=== PATIENT | male | born 1935 | race Caucasian/White ===

== ENCOUNTER 2019-01-27 19:26 | Inpatient (IN) | payer MEDICARE, BC ==
[~2019-01-27] VITALS: Ht 177.8 cm; Wt 89.1 kg
[~2019-01-27 19:26] MED LIST: DIPH-423 PO; DULO-31 PO
[2019-01-27 20:02] LABS: RED BLOOD COUNT 3.96 X10'6 (4.70-6.10)
[2019-01-27 20:04] LABS: BASOPHILS # (AUTO) 0.1 X10'3 (0-0.2); BASOPHILS % (AUTO) 0.9 % (0-1); EOSINOPHILS # (AUTO) 0.5 X10'3 (0-0.9); EOSINOPHILS % (AUTO) 7.3 % (0-6); HEMATOCRIT 39.2 % (42.0-52.0); HEMOGLOBIN 13.6 g/dl (14.0-17.9); LYMPHOCYTES # (AUTO) 2.3 X10'3 (1.1-4.8); LYMPHOCYTES % (AUTO) 32.6 % (21-51); MEAN CORPUSCULAR HEMOGLOBIN 34.3 PG (27.0-31.0); MEAN CORPUSCULAR HGB CONC 34.6 g/dL (33.0-36.5); MEAN PLATELET VOLUME 8.2 FL (7.4-10.4); MONOCYTES # (AUTO) 0.6 X10'3 (0-0.9); MONOCYTES % (AUTO) 7.9 % (2-12); NEUTROPHILS # (AUTO) 3.6 X10'3 (1.8-7.7); NEUTROPHILS % (AUTO) 51.3 % (42-75); PLATELET COUNT 302 X10'3 (140-440); RED CELL DISTRIBUTION WIDTH 14.6 % (11.5-14.5)
[2019-01-27 20:12] LABS: ALANINE AMINOTRANSFERASE 22 U/L (12-78); ALBUMIN 3.3 G/DL (3.4-5.0); ALKALINE PHOSPHATASE 69 IU/L (46-116); ANION GAP 7 (8-16); ASPARTATE AMINO TRANSFERASE 19 U/L (10-37); BILIRUBIN,TOTAL 0.3 MG/DL (0.1-1.0); BLOOD UREA NITROGEN 22 MG/DL (7-18); BUN/CREATININE RATIO 18.5 (5.4-32.0); CALCIUM 9.4 MG/DL (8.5-10.1); CHLORIDE 106 MMOL/L (99-107); CREATININE 1.19 MG/DL (0.60-1.10); GLUCOSE 149 MG/DL (70-104); POTASSIUM 3.7 MMOL/L (3.5-5.1); SODIUM 141 MMOL/L (135-145); TOTAL CARBON DIOXIDE 27.8 MMOL/L (24-32); TOTAL PROTEIN 6.6 G/DL (6.4-8.2); eGFR 59 ML/MIN
[2019-01-27 20:15] LABS: TROPONIN I 0.16 NG/ML (0.0-0.05)
[2019-01-27] MEDS ORDERED: FLO0.4C PO (20:54)
[2019-01-27] MEDS ORDERED: DIVA-74 PO (20:54)
[2019-01-27] MEDS ORDERED: INDA2.5T5 PO (20:54)
[2019-01-27] MEDS ORDERED: ASPI-1265 PO (20:54)
[2019-01-27] MEDS ORDERED: OMEP-50 PO (20:54)
[2019-01-27] MEDS ORDERED: OXAP600T PO (20:54)
[2019-01-27] MEDS ORDERED: OLME1TAB44 PO (20:54)
[2019-01-27] MEDS ORDERED: BUPR300T86 PO (20:54)
[2019-01-27] MEDS ORDERED: METF-98 PO (20:54)
[2019-01-27] MEDS ORDERED: AMLO10TA PO (20:54)
[2019-01-27] MEDS ORDERED: ATOR-2 PO (20:54)
[2019-01-27] MEDS ORDERED: TRAZ-219 PO (20:54)
[2019-01-27] MEDS ORDERED: magnesium Cl slow-release 64mg tablet PO PRN (21:45)
[2019-01-27] MEDS ORDERED: magnesium hydroxide 30ml (MOM) UD suspension PO PRN (21:45)
[2019-01-27] MEDS ORDERED: magnesium 2GM in 50ml NS 50 ML IV PRN (21:45)
[2019-01-27] MEDS ORDERED: potassium Cl 20 mEq SR tablet PO PRN ×2 (21:45)
[2019-01-27] MEDS ORDERED: potassium CL 10mEq/100ml bag 100 ML IV PRN ×2 (21:45)
[2019-01-27] MEDS ORDERED: acetaminophen 325mg tablet PO PRN ×2 (21:45)
[2019-01-27] MEDS ORDERED: aspirin 81mg tab.chew PO ONE (21:45)
[2019-01-27] MEDS ORDERED: magnesium 4gm in 100ml NS 100 ML IV PRN (21:45)
[2019-01-27] MEDS ORDERED: ondansetron/PF 4mg/2ml inj IV PRN (21:45)
[2019-01-27] MEDS ORDERED: mag hydrox/Alum hydrox/simeth 30ml oral suspension PO PRN (21:45)
--- NOTE | 2019-01-27 22:30 | NUR ---
Patient in room MED 311. I have received report from Porfirio VARGAS ED and had the opportunity to ask questions and assume patient care.
[2019-01-27 23:08] VITALS: BP 164/84
[2019-01-27] MEDS ORDERED: DIPH-423 PO (23:23)
--- NOTE | 2019-01-28 00:56 | NUR ---
PAGER ID: [phone] MESSAGE: 311 pt Demetrius extreme tyler to 34 with second degree block. First trop positive. Asymptomatic at this time. Saline locked. Med rec ready for to review. Thank you. - Lala [id number]
[2019-01-28] MEDS ORDERED: diphenhydrAMINE 25mg capsule PO PRN (01:30)
[2019-01-28] MEDS ORDERED: enoxaparin 80mg/0.8ml syringe SUBCUT ONE (01:35)
[2019-01-28] MEDS ORDERED: metoprolol tartrate 1mg/ml inj IV PRN (01:45)
[2019-01-28] MEDS ORDERED: nitroGLYCERIN 0.4mg SUBLingual tab SL PRN (01:45)
[2019-01-28] MEDS ORDERED: regadenoson 0.4mg/5ml syringe IV PRN (01:45)
[2019-01-28] MEDS ORDERED: aminophylline 250mg/10ml inj. IV PRN (01:45)
[2019-01-28 02:00] VITALS: BP 106/45
[2019-01-28 02:46] LABS: ALBUMIN 3.1 G/DL (3.4-5.0); ANION GAP 12 (8-16); BLOOD UREA NITROGEN 18 MG/DL (7-18); BUN/CREATININE RATIO 18.2 (5.4-32.0); CALCIUM 9.5 MG/DL (8.5-10.1); CHLORIDE 107 MMOL/L (99-107); CHOL/HDL RATIO 3.9 (0.00-4.99); CHOLESTEROL 139 MG/DL (0-200); CREATININE 0.99 MG/DL (0.60-1.10); GLUCOSE 133 MG/DL (70-104); HDL CHOLESTEROL 36 MG/DL (35-60); LDL CHOLESTEROL 85 MG/DL (50-100); POTASSIUM 3.6 MMOL/L (3.5-5.1); SODIUM 145 MMOL/L (135-145); TOTAL CARBON DIOXIDE 25.9 MMOL/L (24-32); TRIGLYCERIDES 102 MG/DL (20-135); TROPONIN I 0.14 NG/ML (0.0-0.05); eGFR 72 ML/MIN
--- NOTE | 2019-01-28 03:11 | NUR ---
PAGER ID: [phone] MESSAGE: 311 Demetrius RODRIGUEZ critical magnesium of 1.0. K is 3.6. Will replace per protocol. Thank you. - Lala
--- NOTE | 2019-01-28 03:33 | NUR ---
CRITICAL MAGNESIUM Patient has critical magnesium of 1.0, k 3.6, replacing mg IV, patient is asymptomatic with hr in mid to low 30's; hospitalist consulted and diagnostics ordered
[2019-01-28 04:02] LABS: PARTIAL THROMBOPLASTIN TIME 27 SECONDS (22-32)
[2019-01-28 06:00] VITALS: BP 175/80
--- NOTE | 2019-01-28 06:29 | NUR ---
Patient in room MED 311. I have received report from juan nathan and had the opportunity to ask questions and assume patient care.
--- NOTE | 2019-01-28 06:30 | NUR ---
Problems reprioritized. Patient report given, questions answered & plan of care reviewed with MICHELLE VARGAS.
--- NOTE | 2019-01-28 06:34 | NUR ---
Problems reprioritized. Patient report given, questions answered & plan of care reviewed with Linh VARGAS.
[2019-01-28] MEDS ORDERED: pantoprazole 40mg Tablet.DR PO SCH (08:00)
[2019-01-28] MEDS ORDERED: tamsulosin 0.4mg capsule PO SCH (08:00)
[2019-01-28] MEDS ORDERED: INDAPAMIDE PO SCH (08:00)
[2019-01-28] MEDS ORDERED: K and/or MAG REPLACEMENT MC SCH (08:00)
[2019-01-28] MEDS ORDERED: aspirin 81mg tab.chew PO SCH (08:00)
[2019-01-28] MEDS ORDERED: amLODIPine 5mg tablet PO SCH (08:00)
[2019-01-28] MEDS ORDERED: atorvastatin 20mg tablet PO SCH (08:00)
[2019-01-28] MEDS ORDERED: buPROPion SR 100mg tab PO SCH (08:00)
[2019-01-28] MEDS ORDERED: losartan 50mg tablet PO SCH (08:00)
[2019-01-28] MEDS ORDERED: divalproex sodium 250mg tablet PO SCH (08:00)
[2019-01-28] MEDS ORDERED: enoxaparin 40mg/0.4ml syringe SQ SCH (08:00)
[2019-01-28] MEDS ORDERED: OXAPROZIN 600 MG PO SCH (08:00)
[2019-01-28] MEDS ORDERED: duloxetine 30mg CAPSULE.DR PO SCH (08:00)
[2019-01-28] MEDS ORDERED: HYDROchlorothiazide 25mg tablet PO SCH (08:00)
[2019-01-28 08:02] LABS: BASOPHILS # (AUTO) 0.1 X10'3 (0-0.2); BASOPHILS % (AUTO) 0.8 % (0-1); EOSINOPHILS # (AUTO) 0.4 X10'3 (0-0.9); EOSINOPHILS % (AUTO) 5.4 % (0-6); HEMOGLOBIN 14.4 g/dl (14.0-17.9); LYMPHOCYTES # (AUTO) 1.7 X10'3 (1.1-4.8); LYMPHOCYTES % (AUTO) 23.8 % (21-51); MEAN CORPUSCULAR HGB CONC 34.4 g/dL (33.0-36.5); MEAN CORPUSCULAR VOLUME 99.1 FL (78-98); MEAN PLATELET VOLUME 8.3 FL (7.4-10.4); MONOCYTES # (AUTO) 0.5 X10'3 (0-0.9); MONOCYTES % (AUTO) 7.1 % (2-12); NEUTROPHILS # (AUTO) 4.6 X10'3 (1.8-7.7); NEUTROPHILS % (AUTO) 62.9 % (42-75); PLATELET COUNT 315 X10'3 (140-440); RED BLOOD COUNT 4.24 X10'6 (4.70-6.10); RED CELL DISTRIBUTION WIDTH 14.6 % (11.5-14.5); WHITE BLOOD COUNT 7.3 X10'3 (4.5-11.0)
[2019-01-28 08:19] LABS: POTASSIUM 3.7 MMOL/L (3.5-5.1); TROPONIN I 0.13 NG/ML (0.0-0.05)
[2019-01-28 08:21] LABS: MAGNESIUM 2.9 MG/DL (1.5-2.4)
[2019-01-28 11:00] VITALS: BP 158/76
[2019-01-28 15:00] VITALS: BP 148/72
--- NOTE | 2019-01-28 15:45 | NUR ---
reviewed all discharge orders medications and need for f/u appts.,pt and aware need to go to office wednesday for event recorder, provided info. on aortic stenosis,heart murmers and chest pain.SL dc'd from [facility],site clear.Pt dc'd with all belongings via wheelchair with
[2019-01-28] MEDS ORDERED: traZODone 50mg tablet PO SCH (21:00)
== END 2019-01-28 15:43 | disposition home or self-care (01) | DRG 307 ==
LOC: ER 19:26 → UNDOADMOB 22:13 → ED HOLD 22:13 → MED 3N 22:40
PROVIDERS: ADMIT Hospitalist; ATTEND Family Medicine
DX: I35.0 Nonrheumatic aortic (valve) stenosis (principal); I44.1 Atrioventricular block, second degree; I10 Essential (primary) hypertension; F41.1 Generalized anxiety disorder; E11.65 Type 2 diabetes mellitus with hyperglycemia; N40.0 Benign prostatic hyperplasia without lower urinary tract symptoms; Z88.8 Allergy status to other drugs, medicaments and biological substances; Z90.49 Acquired absence of other specified parts of digestive tract
CPT/HCPCS: 36415; 71045; 80048; 80053; 80061; 82948; 83735; 83880; 84132; 84484; 85025; 85610; 85730; 93005; 93306; 99285; G0378; J1650; J3475

== ENCOUNTER 2019-02-19 14:38 | Inpatient (IN) | payer MEDICARE, BC ==
[~2019-02-19] VITALS: Ht 177.8 cm; Wt 92.5 kg
[2019-02-19 02:00] VITALS: BP 138/81
[~2019-02-19 14:38] MED LIST changes: +AMLO10TA PO; +ASPI-1265 PO; +ATOR-2 PO; +BUPR300T86 PO; -DIPH-423 PO; +DIVA-74 PO; +FLO0.4C PO; +INDA2.5T5 PO; +METF-98 PO; +OLME1TAB44 PO; +OMEP-50 PO; +OXAP600T PO; +TRAZ-219 PO
[2019-02-19 15:48] LABS: BASOPHILS % (AUTO) 0.4 % (0-1); EOSINOPHILS # (AUTO) 0.4 X10'3 (0-0.9); EOSINOPHILS % (AUTO) 4.3 % (0-6); HEMOGLOBIN 14.5 g/dl (14.0-17.9); LYMPHOCYTES # (AUTO) 1.8 X10'3 (1.1-4.8); LYMPHOCYTES % (AUTO) 20.8 % (21-51); MEAN CORPUSCULAR HEMOGLOBIN 34.3 PG (27.0-31.0); MEAN CORPUSCULAR HGB CONC 34.4 g/dL (33.0-36.5); MEAN CORPUSCULAR VOLUME 99.6 FL (78-98); MEAN PLATELET VOLUME 8.3 FL (7.4-10.4); MONOCYTES # (AUTO) 0.7 X10'3 (0-0.9); NEUTROPHILS # (AUTO) 5.9 X10'3 (1.8-7.7); NEUTROPHILS % (AUTO) 66.5 % (42-75); PLATELET COUNT 303 X10'3 (140-440); RED BLOOD COUNT 4.22 X10'6 (4.70-6.10); RED CELL DISTRIBUTION WIDTH 14.4 % (11.5-14.5); WHITE BLOOD COUNT 8.8 X10'3 (4.5-11.0)
[2019-02-19 15:58] LABS: PARTIAL THROMBOPLASTIN TIME 21 SECONDS (22-32)
[2019-02-19 16:00] LABS: ALANINE AMINOTRANSFERASE 24 U/L (12-78); ALBUMIN 3.9 G/DL (3.4-5.0); ALBUMIN/GLOBULIN RATIO 1.1 (1.1-1.5); ALKALINE PHOSPHATASE 64 IU/L (46-116); ANION GAP 7 (8-16); ASPARTATE AMINO TRANSFERASE 18 U/L (10-37); BILIRUBIN,TOTAL 0.5 MG/DL (0.1-1.0); BLOOD UREA NITROGEN 24 MG/DL (7-18); BUN/CREATININE RATIO 18.8 (5.4-32.0); CALCIUM 9.9 MG/DL (8.5-10.1); CHLORIDE 103 MMOL/L (99-107); CREATININE 1.28 MG/DL (0.60-1.10); GLUCOSE 112 MG/DL (70-104); POTASSIUM 4.1 MMOL/L (3.5-5.1); SODIUM 140 MMOL/L (135-145); TOTAL CARBON DIOXIDE 29.7 MMOL/L (24-32); TOTAL PROTEIN 7.4 G/DL (6.4-8.2); eGFR 54 ML/MIN
[2019-02-19] MEDS ORDERED: aspirin 81mg tab.chew PO ONE (17:15)
[2019-02-19] MEDS ORDERED: diphenhydrAMINE 50 mg/ml inj IM ONE (17:30)
[2019-02-19] MEDS ORDERED: haloperidol lactate 5mg/ml inj IM ONE (17:30)
[2019-02-19] MEDS ORDERED: metoclopramide 5 mg/ml inj IV PRN (17:35)
[2019-02-19] MEDS ORDERED: potassium Cl 20 mEq SR tablet PO PRN ×2 (17:35)
[2019-02-19] MEDS ORDERED: magnesium Cl slow-release 64mg tablet PO PRN (17:35)
[2019-02-19] MEDS ORDERED: HYDROcodone/acetaminophen 10/325mg tab PO PRN (17:35)
[2019-02-19] MEDS ORDERED: HYDROcodone/acetaminophen 5mg/325mg tablet PO PRN (17:35)
[2019-02-19] MEDS ORDERED: magnesium hydroxide 30ml (MOM) UD suspension PO PRN (17:35)
[2019-02-19] MEDS ORDERED: bisacodyl 10mg suppository rectal RC PRN (17:35)
[2019-02-19] MEDS ORDERED: magnesium 2GM in 50ml NS 50 ML IV PRN (17:35)
[2019-02-19] MEDS ORDERED: diphenhydrAMINE 50 mg/ml inj IV PRN (17:35)
[2019-02-19] MEDS ORDERED: diphenhydrAMINE 25mg capsule PO PRN (17:35)
[2019-02-19] MEDS ORDERED: acetaminophen 650mg rectal suppository RC PRN (17:35)
[2019-02-19] MEDS ORDERED: acetaminophen 325mg tablet PO PRN ×2 (17:35)
[2019-02-19] MEDS ORDERED: ondansetron/PF 4mg/2ml inj IV PRN (17:35)
[2019-02-19] MEDS ORDERED: mag hydrox/Alum hydrox/simeth 30ml oral suspension PO PRN (17:35)
[2019-02-19] MEDS ORDERED: potassium CL 10mEq/100ml bag 100 ML IV PRN ×2 (17:35)
[2019-02-19] MEDS ORDERED: magnesium 4gm in 100ml NS 100 ML IV PRN (17:35)
[2019-02-19] MEDS ORDERED: LORazepam 2 mg/ml vial IV PRN (17:35)
[2019-02-19] MEDS: normal saline 1000ml 1,000 ML IV SCH (17:46)
--- NOTE | 2019-02-19 19:15 | NUR ---
Patient in room MED 311. I have received report from Samantha VARGAS and had the opportunity to ask questions and assume patient care.
--- NOTE | 2019-02-19 19:30 | NUR ---
Samantha VARGAS in ER called regarding troponin. She will put place orders for the remaining troponins (3hr, 6hr and 12 hr).
--- NOTE | 2019-02-19 19:50 | NUR ---
[employer] unable to enter 12 hr troponin order. I will place the order to finish the troponin protocol. Called lab to get the 3hr troponin drawn now.
[2019-02-19 20:00] VITALS: BP 137/72
[2019-02-19] MEDS: K and/or MAG REPLACEMENT MC SCH (20:00)
[2019-02-19] MEDS ORDERED: temazepam 15mg capsule PO PRN (21:00)
[2019-02-19] MEDS: docusate sod 100mg capsule PO SCH (22:08)
[2019-02-20] MEDS: normal saline 1000ml 1,000 ML IV SCH (04:18)
[2019-02-20 04:53] LABS: TROPONIN I 0.31 NG/ML (0.0-0.05)
[2019-02-20 05:10] LABS: BASOPHILS # (AUTO) 0.1 X10'3 (0-0.2); EOSINOPHILS # (AUTO) 0.3 X10'3 (0-0.9); EOSINOPHILS % (AUTO) 5.5 % (0-6); HEMATOCRIT 38.7 % (42.0-52.0); HEMOGLOBIN 13.2 g/dl (14.0-17.9); LYMPHOCYTES # (AUTO) 1.3 X10'3 (1.1-4.8); LYMPHOCYTES % (AUTO) 21.7 % (21-51); MEAN CORPUSCULAR HEMOGLOBIN 34.3 PG (27.0-31.0); MEAN CORPUSCULAR HGB CONC 34.2 g/dL (33.0-36.5); MEAN CORPUSCULAR VOLUME 100.2 FL (78-98); MEAN PLATELET VOLUME 8.5 FL (7.4-10.4); MONOCYTES # (AUTO) 0.7 X10'3 (0-0.9); MONOCYTES % (AUTO) 10.6 % (2-12); NEUTROPHILS # (AUTO) 3.8 X10'3 (1.8-7.7); NEUTROPHILS % (AUTO) 61.2 % (42-75); PLATELET COUNT 263 X10'3 (140-440); RED BLOOD COUNT 3.86 X10'6 (4.70-6.10); RED CELL DISTRIBUTION WIDTH 14.5 % (11.5-14.5); WHITE BLOOD COUNT 6.2 X10'3 (4.5-11.0)
[2019-02-20 05:24] LABS: HEMOGLOBIN A1C 6.7 % (4.5-6.2)
[2019-02-20 06:00] LABS: ALANINE AMINOTRANSFERASE 23 U/L (12-78); ALBUMIN 3.3 G/DL (3.4-5.0); ALBUMIN/GLOBULIN RATIO 1.1 (1.1-1.5); ALKALINE PHOSPHATASE 57 IU/L (46-116); ANION GAP 7 (8-16); ASPARTATE AMINO TRANSFERASE 23 U/L (10-37); BILIRUBIN,TOTAL 0.6 MG/DL (0.1-1.0); BLOOD UREA NITROGEN 22 MG/DL (7-18); BUN/CREATININE RATIO 17.9 (5.4-32.0); CALCIUM 9.3 MG/DL (8.5-10.1); CHLORIDE 105 MMOL/L (99-107); CREATININE 1.23 MG/DL (0.60-1.10); GLUCOSE 143 MG/DL (70-104); POTASSIUM 3.8 MMOL/L (3.5-5.1); SODIUM 139 MMOL/L (135-145); TOTAL CARBON DIOXIDE 27.5 MMOL/L (24-32); TOTAL PROTEIN 6.4 G/DL (6.4-8.2); eGFR 56 ML/MIN
--- NOTE | 2019-02-20 06:00 | NUR ---
Critical magnesium value 1.0 called to Emir dhaliwal, protocol started at shift change by oncoming RN Clarisse
--- NOTE | 2019-02-20 06:00 | NUR ---
Problems reprioritized. Patient report given, questions answered & plan of care reviewed with Clarisse VARGAS.
--- NOTE | 2019-02-20 06:30 | NUR ---
Patient in room MED 311. I have received report from Nadine VARGAS and had the opportunity to ask questions and assume patient care.
[2019-02-20] MEDS: K and/or MAG REPLACEMENT MC SCH (07:18)
[2019-02-20] MEDS ORDERED: amLODIPine 5mg tablet PO SCH (08:00)
[2019-02-20] MEDS ORDERED: divalproex sodium 250mg tablet PO SCH (08:00)
[2019-02-20] MEDS ORDERED: aspirin 81mg tab.chew PO SCH (08:00)
[2019-02-20] MEDS ORDERED: buPROPion SR 150mg tablet PO SCH (08:00)
[2019-02-20] MEDS ORDERED: metFORMIN 500mg tablet PO SCH (08:00)
[2019-02-20] MEDS ORDERED: losartan 50mg tablet PO SCH (08:00)
[2019-02-20] MEDS ORDERED: tamsulosin 0.4mg capsule PO SCH (08:00)
[2019-02-20] MEDS ORDERED: enoxaparin 40mg/0.4ml syringe SUBCUT SCH (08:00)
[2019-02-20] MEDS ORDERED: pantoprazole 40mg Tablet.DR PO SCH (08:00)
[2019-02-20] MEDS ORDERED: atorvastatin 20mg tablet PO SCH (08:00)
[2019-02-20] MEDS ORDERED: duloxetine 30mg CAPSULE.DR PO SCH (08:00)
[2019-02-20] MEDS ORDERED: HYDROchlorothiazide 25mg tablet PO SCH ×2 (08:00)
[2019-02-20] MEDS: ALPRAZolam 0.25mg tablet PO SCH ×2 (10:05)
[2019-02-20] MEDS: docusate sod 100mg capsule PO SCH (10:07)
[2019-02-20] MEDS ORDERED: ALPR-149 PO (11:41)
--- NOTE | 2019-02-20 13:09 | NUR ---
DM Consult: A1C <7 and not appropriate for DM ed at this time. Addendum: 02/20/19 at [address] Amended: Links added.
--- NOTE | 2019-02-20 13:20 | NUR ---
Patient IV d/bethel no s/s of complications cath intact. Discharge instructions given to pt and his and both stated understanding. New RX given for Xanax and information sheet as well as education on it as well both stated understanding. Pt has remained stable. VSS. Pt taken by wheelchair to private vehicle driven by his .
[2019-02-20] MEDS ORDERED: traZODone 50mg tablet PO SCH (21:00)
[2019-02-20] MEDS ORDERED: Melatonin 3mg tablet PO SCH (21:00)
== END 2019-02-20 13:20 | disposition home or self-care (01) | DRG 880 ==
LOC: ER 14:39 → ED HOLD 18:06 → MED 3N 19:25
PROVIDERS: ADMIT Family Medicine; ATTEND Family Medicine
DX: F41.0 Panic disorder [episodic paroxysmal anxiety] (principal); I21.A1 Myocardial infarction type 2; F41.1 Generalized anxiety disorder; F43.10 Post-traumatic stress disorder, unspecified; E11.22 Type 2 diabetes mellitus with diabetic chronic kidney disease; E11.65 Type 2 diabetes mellitus with hyperglycemia; F32.9 Major depressive disorder, single episode, unspecified; G47.00 Insomnia, unspecified; I12.9 Hypertensive chronic kidney disease with stage 1 through stage 4 chronic kidney disease, or unspecified chronic kidney disease; I49.5 Sick sinus syndrome; N18.9 Chronic kidney disease, unspecified; Z87.19 Personal history of other diseases of the digestive system; Z95.0 Presence of cardiac pacemaker; Z88.8 Allergy status to other drugs, medicaments and biological substances
CPT/HCPCS: 36415; 71045; 80053; 82948; 83036; 83735; 83880; 84484; 85025; 85610; 85730; 87081; 93005; 99285; G0378; J1200; J1630; J1650; J3475; J7030

== ENCOUNTER 2020-11-19 11:57 | Day surgery (SDC) | payer MEDICARE, BC ==
[2020-11-14 15:11] LABS: ALBUMIN 3.3 G/DL (3.4-5.0); ANION GAP 7 (8-16); BLOOD UREA NITROGEN 24 MG/DL (7-18); BUN/CREATININE RATIO 21.8 (5.4-32.0); CALCIUM 9.4 MG/DL (8.5-10.1); CHLORIDE 106 MMOL/L (99-107); GLUCOSE 109 MG/DL (70-104); SODIUM 143 MMOL/L (135-145); TOTAL CARBON DIOXIDE 29.8 MMOL/L (24-32); eGFR 64 ML/MIN
[2020-11-14 15:15] LABS: PARTIAL THROMBOPLASTIN TIME 28 SECONDS (22-32)
[2020-11-14 15:37] LABS: BASOPHILS # (AUTO) 0.1 X10'3 (0-0.2); BASOPHILS % (AUTO) 1.1 % (0-1); EOSINOPHILS # (AUTO) 0.3 X10'3 (0-0.9); EOSINOPHILS % (AUTO) 5.9 % (0-6); HEMATOCRIT 37.2 % (42.0-52.0); HEMOGLOBIN 12.5 g/dl (14.0-17.9); LYMPHOCYTES # (AUTO) 1.4 X10'3 (1.1-4.8); LYMPHOCYTES % (AUTO) 24.4 % (21-51); MEAN CORPUSCULAR HEMOGLOBIN 36.1 PG (27.0-31.0); MEAN CORPUSCULAR HGB CONC 33.6 g/dL (33.0-36.5); MEAN CORPUSCULAR VOLUME 107.5 FL (78-98); MEAN PLATELET VOLUME 8.5 FL (7.4-10.4); MONOCYTES # (AUTO) 0.5 X10'3 (0-0.9); MONOCYTES % (AUTO) 8.2 % (2-12); NEUTROPHILS # (AUTO) 3.4 X10'3 (1.8-7.7); NEUTROPHILS % (AUTO) 60.4 % (42-75); PLATELET COUNT 256 X10'3 (140-440); RED BLOOD COUNT 3.46 X10'6 (4.70-6.10); RED CELL DISTRIBUTION WIDTH 13.6 % (11.5-14.5); WHITE BLOOD COUNT 5.6 X10'3 (4.5-11.0)
[~2020-11-19] VITALS: Ht 177.8 cm; Wt 80.0 kg
[2020-11-19] VITALS (8 sets, daily range): BP systolic 98–141; BP diastolic 55–76
[~2020-11-19 11:57] MED LIST changes: +ALPR-149 PO; +OLME-11 PO; -OLME1TAB44 PO; -TRAZ-219 PO; +TRAZ-256 PO
[2020-11-19] MEDS ORDERED: DULO60CA65 PO (13:10)
[2020-11-19] MEDS ORDERED: OLME1TAB24 PO (13:11)
[2020-11-19] MEDS ORDERED: GLYB2.5T4 PO (13:11)
[2020-11-19] MEDS ORDERED: normal saline 1,000 ML IV SCH (13:50)
[2020-11-19] MEDS ORDERED: diphenhydrAMINE 25mg capsule PO PRN (13:50)
[2020-11-19] MEDS ORDERED: LIDOcaine/PRILOcaine 5gm cream TP ONE (13:55)
[2020-11-19] MEDS ORDERED: iohexol 350MG/ML 100ml bottle IV ONE (14:55)
[2020-11-19] MEDS ORDERED: nitroGLYCERIN-Tridil 50MG/D5W 250 ML IV ONE (14:55)
[2020-11-19] MEDS ORDERED: fentaNYL/PF 50MCG/1 ML 2ML syringe ONE (14:55)
[2020-11-19] MEDS ORDERED: midazolam 1 mg/ML 2ml injection ONE (14:55)
[2020-11-19] MEDS ORDERED: verapamil 2.5 mg/ml inj IV ONE (14:55)
[2020-11-19] MEDS ORDERED: heparin 1,000unit/ml 10ml vial 10 ML ONE (14:55)
[2020-11-19] MEDS ORDERED: LIDOcaine 1% (10mg/ml)w/preservative injection 20ml MDV ONE (14:56)
[2020-11-19] MEDS ORDERED: HYDROcodone/acetaminophen 5mg/325mg tablet PO PRN (16:50)
[2020-11-19] MEDS ORDERED: proCHLORperazine 10 MG/2 ml inj IV PRN (16:50)
[2020-11-19] MEDS ORDERED: ondansetron/PF 4mg/2ml inj IV PRN (16:50)
[2020-11-19] MEDS ORDERED: HYDROcodone/acetaminophen 10/325mg tab PO PRN (16:50)
[2020-11-19] MEDS ORDERED: OXAZEpam 15mg capsule PO PRN (16:50)
[2020-11-19] MEDS ORDERED: acetaminophen 325mg tablet PO PRN (16:50)
== END 2020-11-19 19:30 | disposition home or self-care (01) ==
LOC: SSTAY O 11:57
PROVIDERS: ATTEND Internal Medicine Interventional Cardiology
DX: I35.0 Nonrheumatic aortic (valve) stenosis (principal); I25.10 Atherosclerotic heart disease of native coronary artery without angina pectoris; I10 Essential (primary) hypertension; E11.9 Type 2 diabetes mellitus without complications; F41.9 Anxiety disorder, unspecified; I44.1 Atrioventricular block, second degree; I65.23 Occlusion and stenosis of bilateral carotid arteries; Z95.0 Presence of cardiac pacemaker; Z79.01 Long term (current) use of anticoagulants; Z79.82 Long term (current) use of aspirin; Z79.899 Other long term (current) drug therapy; Z79.84 Long term (current) use of oral hypoglycemic drugs
CPT/HCPCS: 36415; 80048; 85025; 85610; 85730; 93005; 93454; 99152; C1760; C1769; C1894; J1644; J2001; J2250; J3010; J7030; Q0163; Q9967; A4620; A6258; A6449; J3490

== ENCOUNTER 2020-11-21 11:04 | Outpatient (CLI) | payer MEDICARE, BC ==
[~2020-11-21 11:04] MED LIST changes: -ALPR-149 PO; -DULO-31 PO; +DULO60CA65 PO; +GLYB2.5T4 PO; +OLME1TAB24 PO; -OXAP600T PO
[2020-11-21] MEDS ORDERED: IODIXANOL 320 MG/ML INFUS..BTL 100ML IV ONE (11:16)
[2020-11-21] MEDS ORDERED: IODIXANOL 320 MG/ML INFUS..BTL 50ML IV ONE (11:17)
== END 2020-11-21 23:59 | disposition home or self-care (01) ==
LOC: 64 CT 11:04
PROVIDERS: ATTEND Internal Medicine Cardiovascular Disease
DX: K40.90 Unilateral inguinal hernia, without obstruction or gangrene, not specified as recurrent (principal); K80.20 Calculus of gallbladder without cholecystitis without obstruction; N40.0 Benign prostatic hyperplasia without lower urinary tract symptoms; K57.30 Diverticulosis of large intestine without perforation or abscess without bleeding; I70.8 Atherosclerosis of other arteries; I70.1 Atherosclerosis of renal artery; I51.7 Cardiomegaly; M48.54XA Collapsed vertebra, not elsewhere classified, thoracic region, initial encounter for fracture; M50.323 Other cervical disc degeneration at C6-C7 level; I25.10 Atherosclerotic heart disease of native coronary artery without angina pectoris; Z20.822 Contact with and (suspected) exposure to COVID-19
CPT/HCPCS: 71046; 71275; 74174; 87635; 94010; 94727; 94729; C9803; Q9967

== ENCOUNTER 2020-12-26 05:26 | Inpatient (IN) | payer MEDICARE, BC ==
[2020-12-20 15:57] LABS: BASOPHILS % (AUTO) 0.8 % (0-1); EOSINOPHILS # (AUTO) 0.3 X10'3 (0-0.9); EOSINOPHILS % (AUTO) 4.7 % (0-6); LYMPHOCYTES # (AUTO) 1.8 X10'3 (1.1-4.8); LYMPHOCYTES % (AUTO) 29.9 % (21-51); MEAN CORPUSCULAR HEMOGLOBIN 35.3 PG (27.0-31.0); MEAN CORPUSCULAR HGB CONC 33.7 g/dL (33.0-36.5); MEAN CORPUSCULAR VOLUME 104.6 FL (78-98); MEAN PLATELET VOLUME 7.8 FL (7.4-10.4); MONOCYTES # (AUTO) 0.6 X10'3 (0-0.9); MONOCYTES % (AUTO) 9.2 % (2-12); NEUTROPHILS # (AUTO) 3.3 X10'3 (1.8-7.7); NEUTROPHILS % (AUTO) 55.4 % (42-75); PRE OP HEMATOCRIT 37.1 % (42.0-52.0); PRE OP HEMOGLOBIN 12.5 g/dL (14.0-17.9); PRE OP PLATELET COUNT 289 X10'3 (140-440); RED BLOOD COUNT 3.55 X10'6 (4.70-6.10); RED CELL DISTRIBUTION WIDTH 13.3 % (11.5-14.5)
[2020-12-20 16:08] LABS: HEMOGLOBIN A1C 5.1 % (4.5-6.2)
[2020-12-20 16:10] LABS: PRE OP INR 1.1 INR; PRE OP PROTIME 11.1 SECONDS (9.0-12.0)
[2020-12-20 16:12] LABS: ALBUMIN 3.1 G/DL (3.4-5.0); ALBUMIN/GLOBULIN RATIO 0.9 (1.1-1.5); ALKALINE PHOSPHATASE 70 IU/L (46-116); BLOOD UREA NITROGEN 24 MG/DL (7-18); BUN/CREATININE RATIO 25.5 (5.4-32.0); CALCIUM 8.9 MG/DL (8.5-10.1); CHLORIDE 104 MMOL/L (99-107); CREATININE 0.94 MG/DL (0.60-1.10); PRE OP ALT 35 U/L (30-65); PRE OP ANION GAP 9 (8-16); PRE OP AST 21 U/L (10-37); PRE OP BILIRUB, TOTAL 0.5 MG/DL (0.0-1.0); PRE OP GLUCOSE 90 MG/DL (70-104); PRE OP POTASSIUM 3.8 MMOL/L (3.4-5.1); PRE OP SODIUM 141 MMOL/L (135-145); TOTAL CARBON DIOXIDE 28.5 MMOL/L (24-32); TOTAL PROTEIN 6.5 G/DL (6.4-8.2); eGFR 76 ML/MIN
[2020-12-20 16:49] LABS: CLARITY,URINE CLEAR (Clear); COLOR,URINE YELLOW (Yellow); GLUCOSE, URINE NEGATIVE (Neg); KETONES,URINE NEGATIVE (Neg); LEUKOCYTE ESTERASE ,URINE NEGATIVE (Neg); NITRITES, URINE NEGATIVE (Neg); OCCULT BLOOD,URINE NEGATIVE (Neg); PROTEIN,URINE TRACE mg/dl (Neg); UA COLLECTION TYPE CLN CATCH MIDSTREAM; UROBILINOGEN,URINE 0.2 E.U/dL (0.2-1.0)
[2020-12-20 16:57] LABS: BACTERIA,URINE NONE SEEN /HPF (Neg); HYALINE CASTS 0-3 /LPF (NEGATIVE); MUCUS STRANDS NONE SEEN /LPF (Neg); RBC,URINE 0-2 /HPF (0-2); SQUAMOUS EPITHELIAL CELL,UR NONE SEEN /LPF (FEW); WBC,URINE NONE SEEN /HPF (0-4)
[2020-12-24 11:32] VITALS: BP 150/60
[~2020-12-26] VITALS: Ht 177.8 cm; Wt 78.8 kg
[2020-12-26] VITALS (18 sets, daily range): BP systolic 123–155; BP diastolic 64–81
[~2020-12-26 05:26] MED LIST changes: +ALPR0.5T8 PO; +B6 PO; +CHOL50004 PO; -GLYB2.5T4 PO; -OLME-11 PO; +ringers solution, lacted 1,000 ML IV SCH
[2020-12-26] MEDS ORDERED: aspirin 325mg tablet PO ONE (05:30)
[2020-12-26] MEDS ORDERED: predniSONE 20 mg tablet PO SCH (05:30)
[2020-12-26] MEDS ORDERED: diphenhydrAMINE 25mg capsule PO SCH (05:30)
[2020-12-26] MEDS ORDERED: vancomycin 1,500 MG in NS 300ml IV soln IV ONE (05:30)
[2020-12-26] MEDS ORDERED: famotidine 20mg tablet PO ONE (05:30)
[2020-12-26] MEDS ORDERED: ondansetron/PF 4mg/2ml inj IV PRN ×3 (05:30→09:10)
[2020-12-26] MEDS ORDERED: ceFAZolin 2gm in dextrose, iso 50 ML IV ONE (05:30)
[2020-12-26] MEDS ORDERED: phenylephrine 50 MG in NS 250ml IVPB IV SCH (06:00)
[2020-12-26] MEDS ORDERED: LIDOcaine 1% (10mg/ml)w/preservative injection 20ml MDV ONE (06:34)
[2020-12-26] MEDS ORDERED: iohexol 350 MG/ML 50ML vial IV ONE (06:34)
[2020-12-26] MEDS ORDERED: iohexol 350MG/ML 100ml bottle IV ONE ×2 (06:34→06:42)
[2020-12-26] MEDS ORDERED: heparin 1,000 UNITS/NS 500ml 500 ML ONE (06:44)
[2020-12-26] MEDS ORDERED: protamine sulfate 10mg/ml inj. ONE (06:47)
[2020-12-26] MEDS ORDERED: MIDAZolam 1mg/ml 10ml vial ONE (07:02)
[2020-12-26] MEDS ORDERED: fentaNYL/PF 50MCG/1 ML 2ML syringe ONE (07:03)
[2020-12-26] MEDS ORDERED: propofol inj 20 ML IV ONE ×3 (07:49)
[2020-12-26] MEDS ORDERED: heparin 1,000unit/ml 10ml vial 10 ML ONE (07:49)
[2020-12-26] MEDS ORDERED: ondansetron/PF 4mg/2ml inj ONE (07:53)
[2020-12-26] MEDS ORDERED: dexamethasone sod phosphate 4mg/ml inj. ONE (07:53)
[2020-12-26] MEDS ORDERED: potassium Cl 20 mEq SR tablet PO PRN (08:55)
[2020-12-26] MEDS ORDERED: docusate sod 100mg capsule PO PRN (08:55)
[2020-12-26] MEDS: normal saline 1000ml 1,000 ML IV SCH ×2 (08:55→19:49)
[2020-12-26] MEDS ORDERED: magnesium 2GM in 50ml NS 50 ML IV PRN (08:55)
[2020-12-26] MEDS ORDERED: insulin Lispro (HumaLOG) vial - multi-dose SQ SCH (08:55)
[2020-12-26] MEDS ORDERED: labetalol 20mg/4ml (5mg/ml) syringe IV PRN ×2 (08:55→09:10)
[2020-12-26] MEDS ORDERED: potassium CL 10mEq/100ml bag 100 ML IV PRN (08:55)
[2020-12-26] MEDS ORDERED: dextrose 50%-water 50ml dispensing syringe IV PRN ×2 (08:55)
[2020-12-26] MEDS ORDERED: MESSAGE TO PHARMACY PO ONE (08:55)
[2020-12-26] MEDS ORDERED: insulin regular, human U-100 3ml vial - multi-dose SQ SCH (08:55)
[2020-12-26] MEDS ORDERED: acetaminophen 325mg tablet PO PRN (08:55)
[2020-12-26] MEDS ORDERED: glucagon, human recombinant 1mg kit SUBCUT PRN (08:55)
[2020-12-26] MEDS ORDERED: diphenhydrAMINE 25mg capsule PO PRN (08:55)
[2020-12-26] MEDS ORDERED: magnesium 4gm in 100ml NS 100 ML IV PRN (08:55)
[2020-12-26] MEDS ORDERED: dextrose ORAL solution 15 GM/59 ML bottle PO PRN ×2 (08:55)
[2020-12-26] MEDS ORDERED: hydrALAZINE 20mg/ml inj. IV PRN ×2 (08:55→09:10)
[2020-12-26] MEDS ORDERED: potassium Cl 40MEQ/1/2NS 520ml 520 ML IV PRN (08:55)
--- NOTE | 2020-12-26 09:06 | NUR ---
Patient arrived from OR via hospital bed. VSS, ST elevation present upon receiving patient with wide QRS. Paged EKG for scheduled EKG post op, they are delayed and ICU EKG machine is missing. Will follow up. Anesthesiologist aware. Dr. Phillips states to use cuff pressure if titrated needed, Art line has dampened waveform despite maneuvering. 18G PIV present in L. wrist along with arterial line. LR running via 18G. Bilateral femoral access sites have a dressing CDI with soft presentation.
[2020-12-26] MEDS ORDERED: acetaminophen 1,000mg/100ml IV 100 ML IV PRN (09:10)
[2020-12-26] MEDS ORDERED: ringers solution, lacted 1,000 ML IV SCH (09:10)
[2020-12-26] MEDS ORDERED: morphine 2 MG/ML inj. syringe IV PRN (09:10)
[2020-12-26] MEDS ORDERED: morphine 4 MG/ML inj SYRINge IV PRN (09:10)
[2020-12-26] MEDS ORDERED: proCHLORperazine 10 MG/2 ml inj IV PRN (09:10)
[2020-12-26] MEDS ORDERED: meperidine/PF 25mg/ml syringe IV PRN ×3 (09:10)
[2020-12-26] MEDS: nitroPRUSSIDE (NIPRIDE) (200MCG/ML) 100ML Drip IV SCH ×2 (09:28→23:18)
--- NOTE | 2020-12-26 10:06 | NUR ---
Report given to primary RN Sonali. Art line removed, without complications, dressing CDI. Pulses present throughout. LR running via 18G to Left wrist. Patient denies pain, no nausea. Criteria to transfer to floor met. Transferred via hospital bed to [facility]. Pat, , followed to the room.
[2020-12-26] MEDS ORDERED: ALPRAZolam 0.5mg tablet PO PRN (11:50)
[2020-12-26] MEDS: ceFAZolin 1GM/D5W- ADD-VANTAGE 50 ML IV SCH (16:11)
[2020-12-26] MEDS: sod chloride 0.9% 10ml flush syringe IV SCH (16:13)
[2020-12-26] MEDS ORDERED: ALPRAZolam 0.25mg tablet PO PRN (17:50)
--- NOTE | 2020-12-26 18:38 | NUR ---
Problems reprioritized. Patient report given, questions answered & plan of care reviewed with ALICIA Boles.
[2020-12-26] MEDS: buPROPion SR 150mg tablet PO SCH (19:49)
[2020-12-26] MEDS: vancomycin/NS 1 GM ADD-VANTAGE 250 ML IV SCH (20:09)
[2020-12-26] MEDS ORDERED: traZODone 50mg tablet PO SCH (21:00)
[2020-12-26] MEDS ORDERED: insulin glargine (Lantus) pen - multi-dose SQ SCH (21:00)
[2020-12-27] MEDS: sod chloride 0.9% 10ml flush syringe IV SCH ×2 (00:50→07:56)
[2020-12-27] MEDS: ceFAZolin 1GM/D5W- ADD-VANTAGE 50 ML IV SCH ×2 (00:50→07:55)
[2020-12-27 03:00] VITALS: BP 116/66
[2020-12-27 06:00] VITALS: BP 158/74
--- NOTE | 2020-12-27 06:32 | NUR ---
Patient in room PCU 3018. I have received report from ALICIA Boles and had the opportunity to ask questions and assume patient care.
[2020-12-27 07:01] LABS: BASOPHILS % (AUTO) 0.3 % (0-1); EOSINOPHILS # (AUTO) 0.1 X10'3 (0-0.9); EOSINOPHILS % (AUTO) 0.8 % (0-6); HEMOGLOBIN 12.2 g/dl (14.0-17.9); LYMPHOCYTES # (AUTO) 1.6 X10'3 (1.1-4.8); LYMPHOCYTES % (AUTO) 16.4 % (21-51); MEAN CORPUSCULAR HEMOGLOBIN 36.2 PG (27.0-31.0); MEAN CORPUSCULAR HGB CONC 34.9 g/dL (33.0-36.5); MEAN CORPUSCULAR VOLUME 103.7 FL (78-98); MONOCYTES # (AUTO) 0.8 X10'3 (0-0.9); MONOCYTES % (AUTO) 7.7 % (2-12); NEUTROPHILS # (AUTO) 7.4 X10'3 (1.8-7.7); NEUTROPHILS % (AUTO) 74.8 % (42-75); PLATELET COUNT 244 X10'3 (140-440); RED BLOOD COUNT 3.37 X10'6 (4.70-6.10); RED CELL DISTRIBUTION WIDTH 13.6 % (11.5-14.5); WHITE BLOOD COUNT 9.9 X10'3 (4.5-11.0)
[2020-12-27 07:30] LABS: ALANINE AMINOTRANSFERASE 26 U/L (12-78); ALBUMIN 2.9 G/DL (3.4-5.0); ALBUMIN/GLOBULIN RATIO 0.9 (1.1-1.5); ALKALINE PHOSPHATASE 49 IU/L (46-116); ANION GAP 4 (8-16); ASPARTATE AMINO TRANSFERASE 18 U/L (10-37); BILIRUBIN,TOTAL 0.6 MG/DL (0.1-1.0); BLOOD UREA NITROGEN 24 MG/DL (7-18); BUN/CREATININE RATIO 24.2 (5.4-32.0); CALCIUM 9.1 MG/DL (8.5-10.1); CHLORIDE 105 MMOL/L (99-107); CREATININE 0.99 MG/DL (0.60-1.10); GLUCOSE 105 MG/DL (70-104); MAGNESIUM 1.3 MG/DL (1.5-2.4); SODIUM 139 MMOL/L (135-145); TOTAL PROTEIN 6.2 G/DL (6.4-8.2); eGFR 72 ML/MIN
[2020-12-27] MEDS ORDERED: pantoprazole 40mg Tablet.DR PO SCH (07:30)
[2020-12-27] MEDS: buPROPion SR 150mg tablet PO SCH (07:57)
[2020-12-27] MEDS ORDERED: tamsulosin 0.4mg capsule PO SCH (08:00)
[2020-12-27] MEDS ORDERED: atorvastatin 20mg tablet PO SCH (08:00)
[2020-12-27] MEDS ORDERED: duloxetine 30mg CAPSULE.DR PO SCH (08:00)
[2020-12-27] MEDS ORDERED: losartan 50mg tablet PO SCH (08:00)
[2020-12-27] MEDS ORDERED: HYDROchlorothiazide 25mg tablet PO SCH (08:00)
[2020-12-27] MEDS ORDERED: divalproex 250mg tablet, delayed-release PO SCH (08:00)
[2020-12-27] MEDS ORDERED: amLODIPine 5mg tablet PO SCH (08:00)
[2020-12-27] MEDS ORDERED: aspirin 81mg tab.chew PO SCH (08:00)
[2020-12-27] MEDS ORDERED: magnesium Cl slow-release 64mg tablet PO PRN (08:40)
[2020-12-27] MEDS: vancomycin/NS 1 GM ADD-VANTAGE 250 ML IV SCH (08:50)
[2020-12-27 11:00] VITALS: BP 144/76
--- NOTE | 2020-12-27 11:45 | NUR ---
Pt stable for D/C per MD orders. Pt stable for D/C. All D/C ppwk was reviewed with patient and patient spouse. Both verbalized understanding of the importance of all followup appts. PIV was removed from L FA - pt tolerated well. Tele box 32 was removed and given to [employer]. All personal belongings were sent with patient. Pt was wheeled out by nursing staff, to private vehicle where was waiting. No new RX at this time.
== END 2020-12-27 11:50 | disposition home or self-care (01) | DRG 266 ==
LOC: PAS IN 05:26 → UNDOADMIN 05:26 → EDSTATUS 07:30 → PAS IN 08:54 → PCU 3S 10:40 → UNDODISIN 12-27 11:50
PROVIDERS: ADMIT Internal Medicine Cardiovascular Disease; ATTEND Internal Medicine Cardiovascular Disease
PROC: B3101ZZ Fluoroscopy of Thoracic Aorta using Low Osmolar Contrast (ICD-10-PCS; 2020-12-26)
PROC: B41G1ZZ Fluoroscopy of Left Lower Extremity Arteries using Low Osmolar Contrast (ICD-10-PCS; 2020-12-26)
PROC: B41F1ZZ Fluoroscopy of Right Lower Extremity Arteries using Low Osmolar Contrast (ICD-10-PCS; 2020-12-26)
PROC: 02RF38Z Replacement of Aortic Valve with Zooplastic Tissue, Percutaneous Approach (ICD-10-PCS; principal; 2020-12-26 07:01)
DX: I35.0 Nonrheumatic aortic (valve) stenosis (principal); Z00.6 Encounter for examination for normal comparison and control in clinical research program; I50.21 Acute systolic (congestive) heart failure; I10 Essential (primary) hypertension; I25.10 Atherosclerotic heart disease of native coronary artery without angina pectoris; N40.0 Benign prostatic hyperplasia without lower urinary tract symptoms; E11.9 Type 2 diabetes mellitus without complications; E78.5 Hyperlipidemia, unspecified; Z20.822 Contact with and (suspected) exposure to COVID-19; E78.00 Pure hypercholesterolemia, unspecified; Z95.0 Presence of cardiac pacemaker; Z87.891 Personal history of nicotine dependence; Z79.899 Other long term (current) drug therapy; Z79.82 Long term (current) use of aspirin
CPT/HCPCS: 33361; 36415; 71045; 71046; 80053; 81001; 82948; 83036; 83735; 83880; 85025; 85347; 85610; 85730; 86885; 86900; 86901; 86920; 87081; 93005; 93308; A4618; A6258; A6449; C1760; C1892; C1894; G0378; J0690; J1100; J1644; J1815; J2001; J2250; J2405; J2704; J2720; J3010; J3370; J7030; J7040; J7120; J7512; P9016; Q9967; U0003; U0005

== ENCOUNTER 2021-04-12 01:50 | Emergency (ER) | payer MEDICARE, BC ==
[~2021-04-12] VITALS: Ht 180.3 cm; Wt 77.3 kg
[~2021-04-12 01:50] MED LIST changes: -OMEP-50 PO; +OMEP20CA16 PO; -ringers solution, lacted 1,000 ML IV SCH
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
[2021-04-12 02:05] VITALS: BP 165/101
[2021-04-12] MEDS ORDERED: olanzapine 10mg tablet PO STA (02:10)
== END 2021-04-12 03:00 | disposition home or self-care (01) ==
LOC: ER 01:51
DX: Z13.89 Encounter for screening for other disorder (principal); R45.1 Restlessness and agitation; F41.9 Anxiety disorder, unspecified; I10 Essential (primary) hypertension; E11.9 Type 2 diabetes mellitus without complications; Z90.89 Acquired absence of other organs; Z88.8 Allergy status to other drugs, medicaments and biological substances; Z79.82 Long term (current) use of aspirin; Z79.899 Other long term (current) drug therapy
CPT/HCPCS: 99283